=== PATIENT | female | born 1985 | race Caucasian/White ===

== ENCOUNTER 2024-08-12 12:18 | Inpatient (IN) | payer OTHER ==
[~2024-08-12] VITALS: Ht 160 cm; Wt 99.3 kg
[2024-08-12] MEDS ORDERED: ONDANSETRON HCL INJ 2MG/ML 2ML 2 MG/ML VIAL IV PRN (16:00)
[2024-08-12] MEDS ORDERED: Morphine 4mg INJECTION 4 MG/ML INJ IV PRN (16:00)
[2024-08-12 16:01] VITALS: PULSE 90; RESP 15; TEMP 97.9
[2024-08-12] MEDS: METOCLOPRAMIDE HCL 10 MG/2ML VIAL IV ONE (16:09)
[2024-08-12] MEDS: SODIUM CHLORIDE 0.9% 1000ML 1,000 ML IV STA (16:10)
[2024-08-12 16:26] LABS: BASOPHILS # (AUTO) 0.1 (0.0-0.1); BASOPHILS % 0.7 % (0.0-1.0); EOSINOPHILS # (AUTO) 0.1 (0.0-0.4); EOSINOPHILS % 1.3 % (0.0-6.0); HEMATOCRIT 40.9 % (34.2-44.1); HEMOGLOBIN 13.2 g/dL (12.0-16.0); LYMPHOCYTES # (AUTO) 2.9 (1.0-3.2); LYMPHOCYTES % 28.8 % (18.0-39.1); MEAN CORPUSCULAR HEMOGLOBIN 27.8 pg (28-32); MEAN CORPUSCULAR HGB CONC 32.3 g/dL (31-35); MEAN CORPUSCULAR VOLUME 86.1 fL (81-99); MONOCYTES # (AUTO) 0.5 (0.2-0.8); MONOCYTES % 4.6 % (4.4-11.3); NEUTROPHILS # (AUTO) 6.5 (2.1-6.9); NEUTROPHILS % 64.4 % (38.7-80.0); PLATELET COUNT 368 x10e3/uL (140-360); RED BLOOD COUNT 4.75 x10e6/uL (3.6-5.1); RED CELL DISTRIBUTION WIDTH 13.8 % (11.7-14.4); WHITE BLOOD COUNT 10.01 x10e3/uL (4.8-10.8)
[2024-08-12 16:54] LABS: ALBUMIN 4.2 g/dL (3.5-5.0); ALBUMIN/GLOBULIN RATIO 1.3 (0.8-2.0); ANION GAP 13.7 mmol/L (8-16); BILIRUBIN,TOTAL 0.5 mg/dL (0.2-1.2); CALCIUM 9.3 mg/dL (8.4-10.2); CREATININE, SERUM 0.81 mg/dL (0.57-1.11); POTASSIUM 3.7 mmol/L (3.5-5.1); TOTAL PROTEIN 7.5 g/dL (6.5-8.1)
[2024-08-12 19:41] VITALS: BP 114/60; PULSE 87; RESP 18; TEMP 98.3; O2SAT 100
[2024-08-12 20:00] VITALS: BP 114/60; PULSE 87; RESP 18; TEMP 98.3; O2SAT 100
[2024-08-12 23:35] VITALS: BP 104/48; PULSE 84; RESP 18; TEMP 98.3; O2SAT 99
[2024-08-13] MEDS: SODIUM CHLORIDE 0.9% 1000ML 1,000 ML IV SCH (02:14)
[2024-08-13] MEDS: METOCLOPRAMIDE HCL 10 MG/2ML VIAL IV SCH (02:14)
[2024-08-13 03:36] VITALS: BP 108/59; PULSE 63; RESP 18; TEMP 98.2; O2SAT 99
[2024-08-13] MEDS ORDERED: SYMBICORT 16010.2 GM INH (05:04)
[2024-08-13] MEDS ORDERED: AZITHROMYCIN500 MG (05:04)
[2024-08-13 06:48] LABS: BASOPHILS # (AUTO) 0.1 (0.0-0.1); BASOPHILS % 0.9 % (0.0-1.0); EOSINOPHILS # (AUTO) 0.3 (0.0-0.4); EOSINOPHILS % 3.5 % (0.0-6.0); HEMOGLOBIN 11.7 g/dL (12.0-16.0); LYMPHOCYTES # (AUTO) 2.4 (1.0-3.2); LYMPHOCYTES % 30.9 % (18.0-39.1); MEAN CORPUSCULAR HEMOGLOBIN 27.9 pg (28-32); MEAN CORPUSCULAR HGB CONC 31.6 g/dL (31-35); MEAN CORPUSCULAR VOLUME 88.1 fL (81-99); MONOCYTES # (AUTO) 0.5 (0.2-0.8); MONOCYTES % 6.1 % (4.4-11.3); NEUTROPHILS # (AUTO) 4.5 (2.1-6.9); NEUTROPHILS % 58.3 % (38.7-80.0); PLATELET COUNT 299 x10e3/uL (140-360); RED CELL DISTRIBUTION WIDTH 13.7 % (11.7-14.4); WHITE BLOOD COUNT 7.66 x10e3/uL (4.8-10.8)
[2024-08-13 07:21] LABS: ALBUMIN 3.3 g/dL (3.5-5.0); ALBUMIN/GLOBULIN RATIO 1.2 (0.8-2.0); ANION GAP 9.9 mmol/L (8-16); BILIRUBIN,TOTAL 0.5 mg/dL (0.2-1.2); CALCIUM 8.3 mg/dL (8.4-10.2); CREATININE, SERUM 0.72 mg/dL (0.57-1.11); POTASSIUM 3.9 mmol/L (3.5-5.1)
[2024-08-13 07:43] VITALS: BP 112/76; PULSE 76; RESP 20; TEMP 98.6; O2SAT 99
[2024-08-13 08:20] VITALS: BP 112/76; PULSE 76; RESP 20; TEMP 98.6; O2SAT 99
[2024-08-13 11:18] VITALS: BP 124/69; PULSE 71; RESP 18; TEMP 97.3; O2SAT 100
[2024-08-13] MEDS ORDERED: LIDOCAINE HCL 2% LOCAL INJ 5 ML SDV VIAL INJ ONE (13:02)
[2024-08-13] MEDS ORDERED: PROPOFOL IV EMULSION 50 ML IV ONE (13:02)
[2024-08-13] MEDS ORDERED: FENTANYL CITRATE/PF 100MCG/2 ML INJ ONE (13:03)
[2024-08-13 15:33] VITALS: BP 129/74; PULSE 68; RESP 18; TEMP 97.8; O2SAT 97
[2024-08-13] MEDS ORDERED: PANTOPRAZOLE SO40 MG PO (17:03)
== END 2024-08-13 18:10 | disposition home or self-care (01) | DRG 392 ==
LOC: ER 13:03 → ERHOLD 16:03 → MED/SURG3 18:01
PROVIDERS: ADMIT Family Medicine Adult Medicine; ATTEND Family Medicine Adult Medicine
PROC: 0DB68ZX Excision of Stomach, Via Natural or Artificial Opening Endoscopic, Diagnostic (ICD-10-PCS; 2024-08-13)
PROC: 0DB78ZX Excision of Stomach, Pylorus, Via Natural or Artificial Opening Endoscopic, Diagnostic (ICD-10-PCS; 2024-08-13)
PROC: 0D748ZZ Dilation of Esophagogastric Junction, Via Natural or Artificial Opening Endoscopic (ICD-10-PCS; 2024-08-13)
PROC: 0DB58ZX Excision of Esophagus, Via Natural or Artificial Opening Endoscopic, Diagnostic (ICD-10-PCS; principal; 2024-08-13 13:10)
DX: K22.2 Esophageal obstruction (principal); T18.128A Food in esophagus causing other injury, initial encounter; R09.A2 Foreign body sensation, throat; R11.10 Vomiting, unspecified; K20.0 Eosinophilic esophagitis; K29.70 Gastritis, unspecified, without bleeding; K21.9 Gastro-esophageal reflux disease without esophagitis; J45.909 Unspecified asthma, uncomplicated; F90.9 Attention-deficit hyperactivity disorder, unspecified type; E66.9 Obesity, unspecified; Z68.38 Body mass index [BMI] 38.0-38.9, adult; W44.F3XA Food entering into or through a natural orifice, initial encounter; Z88.7 Allergy status to serum and vaccine
CPT/HCPCS: 36415; 43450; 74022; 80053; 84702; 85025; 96374; 99284; J2003; J2470; J2765; J7030